=== PATIENT | male | born 2000 | race Two or more races ===

== ENCOUNTER 2020-08-17 17:15 | Emergency (ER) | payer SELFPAY ==
[~2020-08-17] VITALS: Ht 170.2 cm; Wt 97.0 kg
[2020-08-17 18:20] VITALS: BP 137/75
--- NOTE | 2020-08-17 18:59 | PHYS DOC ---
Past Medical History Past Medical History: No Pertinent History Past Surgical History: No Surgical History Smoking Status: Never Smoker Alcohol Use: Occasionally General Adult EDM: Chief Complaint: ANKLE PROBLEM HPI: HPI: Patient is a 19 year old male who presents with states that he tripped and fell in his right ankle bent outward. He rates his pain a 5 out of 10 and states it is throbbing and nonradiating. He states he is able to walk on it put pressure on the extremity. Patient denies past medical history. He states he did not take any pain medication prior to coming. He states he does have some tingling to the lateral part of his ankle. Review of Systems: Review of Systems: Constitutional: Denies fever or chills. [] Eyes: Denies change in visual acuity. [] HENT: Denies nasal congestion or sore throat. [] Respiratory: Denies cough or shortness of breath. [] Cardiovascular: Denies chest pain. +Right ankle 2+ edema. [] GI: Denies abdominal pain, nausea, vomiting, bloody stools or diarrhea. [] : Denies dysuria. [] Musculoskeletal: Denies back pain. + Right ankle joint pain. [] Integument: Denies rash. [] Neurologic: Denies headache, focal weakness or sensory changes. [] Endocrine: Denies polyuria or polydipsia. [] Lymphatic: Denies swollen glands. [] Psychiatric: Denies depression or anxiety. [] Heart Score: Risk Factors: Risk Factors: DM, Current or recent (<one month) smoker, HTN, HLP, family history of CAD, obesity. Risk Scores: Score 0 - 3: 2.5% MACE over next 6 weeks - Discharge Home Score 4 - 6: 20.3% MACE over next 6 weeks - Admit for Clinical Observation Score 7 - 10: 72.7% MACE over next 6 weeks - Early Invasive Strategies Allergies: Allergies: Allergies Coded Allergies Type Severity Reaction Last Updated Verified No Known Drug Allergies 08/17/20 No Physical Exam: PE: Constitutional: Well developed, well nourished, no acute distress, non-toxic appearance. [] HENT: Normocephalic, atraumatic, bilateral external ears normal, oropharynx moist, no oral exudates, nose normal. [] Eyes: PERRLA, EOMI, conjunctiva normal, no discharge. [] Neck: Normal range of motion, no tenderness, supple, no stridor. [] Cardiovascular:Heart rate regular rhythm, no murmur [] Lungs & Thorax: Bilateral breath sounds clear to auscultation [] Abdomen: Bowel sounds normal, soft, no tenderness, no masses, no pulsatile masses. [] Skin: Warm, dry, no erythema, no rash. [] Back: No tenderness, no CVA tenderness. [] Extremities: Right lateral ankle tenderness, no cyanosis, no clubbing, right ankle ROM intact but limited due to pain, lateral ankle 2+ edema. [] Neurologic: Alert and oriented X 3, normal motor function, normal sensory function, no focal deficits noted. [] Psychologic: Affect normal, judgement normal, mood normal. [] Current Patient Data: Vital Signs: Vital Signs Date Time Temp Pulse Resp B/P (MAP) Pulse Ox O2 Delivery O2 Flow Rate FiO2 08/17/20 18:20 98.3 95 14 137/75 (95) 96 Room Air 98.3 EKG: EKG: [] Radiology/Procedures: Radiology/Procedures: [] Impression: [facility] [address] [place] [address] IMAGING REPORT Signed PATIENT: ILDEFONSO DOWD ACCOUNT: [id number] : 2000 LOCATION: ER AGE: 19 SEX: M EXAM STATUS: REG ER ORD. PHYSICIAN: LESTER ESCOBEDO APRN REASON: injury PROCEDURE: FOOT RIGHT 3V Examination: ANKLE RIGHT 3V, FOOT RIGHT 3V History: Reason: injury /pain Comparison/Correlation: None Findings: Three-view exam right ankle and three-view exam of the right foot was performed. Soft tissue swelling about the ankle is noted especially in the region of the lateral malleolus. Ankle joint mortise is unremarkable. No displaced fracture or bone destruction. Bony structures are unremarkable. No degenerative change. Impression: Soft tissue swelling about the ankle. No fracture or bone destruction. Electronically signed by: Magda Lobo MD (08/17/2020 7:14 PM) [facility] DICTATED and SIGNED BY: MAGDA LOBO MD DATE: 08/17/20 [id number] 0 Course & Med Decision Making: Course & Med Decision Making Pertinent Labs and Imaging studies reviewed. (See chart for details) See HPI. Patient has 2+ ankle swelling but no bruising or deformity. Patient has slight tenderness to the lateral ankle with palpation. Pedal pulses strong present. Skin pink warm and dry. Cap refill is less than 2 seconds. Ambulatory but limping. Alert and oriented x4. Speaks in full complete sentences. He does have some range of motion in the joint but it is painful with range of motion movements. No laxity in the joint. X-ray shows no acute finding. Patient to follow-up with orthopedics. He is placed in a walking boot. [] Dragon Disclaimer: [employer] Disclaimer: This electronic medical record was generated, in whole or in part, using a voice recognition dictation system. Departure Departure Impression: Primary Impression: Ankle pain, right Qualified Codes: M25.571 - Pain in right ankle and joints of right foot Disposition: 01 DC HOME SELF CARE/HOMELESS Condition: STABLE Patient Instructions: Ankle Sprain Additional Instructions: Follow-up with orthopedics calling on Thursday get into see you in the next week or so. Take ibuprofen for your pain. Use ice and elevation to help with swelling and pain. Scripts Ibuprofen (IBUPROFEN) 600 Mg Tablet 600 MG PO PRN Q6HRS PRN for INFLAMMATION, #20 TAB Prov: LESTER ESCOBEDO APRN 08/17/20 LESTER ESCOBEDO APRN Aug 17, 2020 18:59
[2020-08-17] MEDS ORDERED: HYDROcodone/APAP 5/325MG 1 TAB TABLET PO ONE (19:00)
--- NOTE | 2020-08-17 19:17 | RAD ---
Examination: ANKLE RIGHT 3V, FOOT RIGHT 3V History: Reason: injury /pain Comparison/Correlation: None Findings: Three-view exam right ankle and three-view exam of the right foot was performed. Soft tissue swelling about the ankle is noted especially in the region of the lateral malleolus. Ankle joint mortise is unremarkable. No displaced fracture or bone destruction. Bony structures are unremarkable. No degenerative change. Impression: Soft tissue swelling about the ankle. No fracture or bone destruction. Electronically signed by: Pancho Almodovar MD (08/17/2020 7:14 PM) [facility]
[2020-08-17] MEDS ORDERED: IBUP-1007 PO (19:20)
== END 2020-08-17 20:15 | disposition home or self-care (01) ==
LOC: ER 17:15
DX: M25.571 Pain in right ankle and joints of right foot (principal); G89.11 Acute pain due to trauma; W01.0XXA Fall on same level from slipping, tripping and stumbling without subsequent striking against object, initial encounter; Y93.89 Activity, other specified; Y92.89 Other specified places as the place of occurrence of the external cause; Y99.8 Other external cause status
CPT/HCPCS: 73610; 73630; 99284